=== PATIENT | female | born 1975 | race Caucasian/White ===

== ENCOUNTER 2023-11-02 01:20 | Emergency (ER) | payer BC ==
[~2023-11-02] VITALS: Ht 172.7 cm; Wt 62.1 kg
[2023-11-02 01:45] VITALS: BP 126/71; PULSE 80; RESP 20; TEMP 98.2; O2SAT 98
[2023-11-02 02:49] LABS: BASOPHILS # (AUTO) 0.1 K/uL (0.00-0.22); BASOPHILS % (AUTO) 1.1 % (0.0-2.0); EOSINOPHILS # (AUTO) 0.4 K/uL (0-0.4); EOSINOPHILS % (AUTO) 3.3 % (0.0-4.0); HEMATOCRIT 43.7 % (36-48); HEMOGLOBIN 14.5 g/dL (12.0-16.0); LYMPHOCYTES # (AUTO) 2.7 K/uL (2.5-16.5); LYMPHOCYTES % (AUTO) 25.3 % (20.5-51.1); MEAN CORPUSCULAR HEMOGLOBIN 30 pg (27-31); MEAN CORPUSCULAR HGB CONC 33 g/dL (33-37); MEAN CORPUSCULAR VOLUME 91.8 fL (80-94); MONOCYTES % (AUTO) 9.1 % (1.7-9.3); NEUTROPHILS # (AUTO) 6.5 K/uL (1.8-7.7); NEUTROPHILS % (AUTO) 61.2 % (42.2-75.2); PLATELET COUNT (AUTO) 253 K/uL (140-450); RED BLOOD CELL COUNT(AUTO) 4.76 MIL/uL (4.20-5.40); RED CELL DISTRIBUTION WIDTH 13.3 % (11.6-13.7); WHITE BLOOD COUNT (AUTO) 10.7 K/uL (4.8-10.8)
[2023-11-02] MEDS: NACL 0.9% 1,000 ML IV ONE (02:52)
[2023-11-02] MEDS: MORPHINE SULFATE 4 MG/ML SYR IVP ONE (02:56)
[2023-11-02] MEDS: KETOROLAC 30 MG/ML VIAL IVP ONE ×2 (02:56→06:16)
[2023-11-02] MEDS: ONDANSETRON 4 MG/2 ML VIAL IVP ONE (02:57)
[2023-11-02] MEDS: ACETAMINOPHEN EXTRA STRENGTH 500 MG TAB PO ONE (02:58)
[2023-11-02 03:03] LABS: APPEARANCE,URINE SLIGHTLY HAZY (CLEAR); BILIRUBIN,URINE 1+ (NEGATIVE); BLOOD, URINE 3+ (NEGATIVE); COLOR,URINE RED (YELLOW); LEUKOCYTE ESTERASE ,URINE 3+ (NEGATIVE); NITRITE, URINE POSITIVE (NEGATIVE); PH,URINE 7.5 (5.0-9.0); PROTEIN,URINE 3+ (NEGATIVE); UGLUCOSE NEGATIVE (NEGATIVE)
[2023-11-02 03:04] LABS: ANION GAP 15.5 (8-16); CALCIUM 9.7 mg/dL (8.5-10.1); CARBON DIOXIDE 23.7 mmol/L (21-32); CREATININE 0.8 mg/dL (0.6-1.3); POTASSIUM 4.2 mmol/L (3.5-5.1)
[2023-11-02 03:08] LABS: ALBUMIN 3.8 g/dL (3.4-5.0); TOTAL BILIRUBIN 0.3 mg/dL (0.0-1.0); TOTAL PROTEIN, SERUM 7.6 g/dL (6.4-8.2)
[2023-11-02 03:11] LABS: ICTOTEST NEGATIVE (NEGATIVE); RBC,URINE 11-20 (MOD) /HPF (0-5)
[2023-11-02 03:12] LABS: BACTERIA,URINE 3+ /HPF (None Seen); MUCUS,URINE None Seen /LPF (None Seen); SQUAMOUS EPITHELIAL CELL,UR 4-10 (MOD) /LPF (0-3 (FEW))
[2023-11-02] MEDS ORDERED: cefTRIAXone 1,000 MG VIAL ONE (04:25)
[2023-11-02] MEDS ORDERED: CEFP100T18 PO (05:07)
[2023-11-02] MEDS ORDERED: ONDA-188 PO (05:08)
[2023-11-02] MEDS ORDERED: TAMS0.4C96 PO (05:08)
[2023-11-02] MEDS ORDERED: ACET-5629 PO ×2 (05:10→05:45)
[2023-11-02 07:15] VITALS: BP 112/68; PULSE 70; RESP 17; TEMP 98.5; O2SAT 97
== END 2023-11-02 07:15 | disposition home or self-care (01) ==
LOC: MED 01:20
DX: N13.2 Hydronephrosis with renal and ureteral calculous obstruction (principal); N39.0 Urinary tract infection, site not specified; R11.2 Nausea with vomiting, unspecified; Z79.899 Other long term (current) drug therapy
CPT/HCPCS: 36415; 74176; 80048; 80076; 81001; 83690; 85025; 87086; 87186; 96361; 96365; 96375; 96376; 99285; J0696; J1885; J2270; J2405; J7030; 96374